=== PATIENT | female | born 1955 | race Caucasian/White ===

== ENCOUNTER 2016-08-02 18:17 | Inpatient (IN) | payer BC ==
[~2016-08-02] VITALS: Ht 167.6 cm; Wt 60.8 kg
--- NOTE | 2016-08-02 18:22 | NUR ---
BLOOD SUGAR RECHECK. 122 MG/DL
[2016-08-02 18:42] LABS: BASOPHILS % (AUTO) 0.5 % (0.0-2.0); EOSINOPHILS # (AUTO) 0.1 /CMM (0.0-0.7); EOSINOPHILS % (AUTO) 1.8 % (0.0-6.0); HEMATOCRIT 38 % (33-45); HEMOGLOBIN 12.9 g/dL (11.5-14.8); LYMPHOCYTES # (AUTO) 1.4 /CMM (0.8-4.8); LYMPHOCYTES % (AUTO) 19.4 % (20.0-44.0); MEAN CORPUSCULAR HEMOGLOBIN 32 PG (26.0-33.0); MEAN CORPUSCULAR HGB CONC 34 g/dl (31.0-36.0); MEAN CORPUSCULAR VOLUME 94 fL (82-100); MONOCYTES # (AUTO) 0.5 /CMM (0.1-1.30); MONOCYTES % (AUTO) 7.3 % (2.0-12.0); NEUTROPHILS # (AUTO) 5.2 /CMM (1.8-8.9); PLATELET COUNT (AUTO) 438 /CMM (150-450); RDW COEFFICIENT OF VARIATION 12.5 (11.5-15.0); RED BLOOD CELL COUNT(AUTO) 4.01 MIL/uL (4.0-5.2); WHITE BLOOD COUNT (AUTO) 7.2 K/uL (4.3-11.0)
[2016-08-02 18:47] LABS: CALCIUM, SERUM 9.3 mg/dL (8.5-10.1); CARBON DIOXIDE 29 mmol/L (21-32); CHLORIDE 104 mmol/L (98-107); CREATININE 0.8 mg/dL (0.6-1.3); GFR 73 mL/min (>60); GLUCOSE 106 mg/dL (74-106); POTASSIUM 3.4 mmol/L (3.5-5.1); SODIUM SERUM 141 mmol/L (136-145); UREA NITROGEN, BLOOD 19 mg/dL (7-18)
[2016-08-02 18:55] LABS: INR 0.91 (0.87-1.13); PROTHROMBIN TIME 9.5 SECS (9.5-12.7)
[2016-08-02 18:56] LABS: TROPONIN I < 0.017 ng/mL (0.00-0.056)
--- NOTE | 2016-08-02 19:10 | NUR ---
Received patient in bed aaox4, no s/s of acute distress, respiration even and unlabored. Denies any pain, discomfort at this time and says, "I feel much better." VSS. Will continue to monitor.
--- NOTE | 2016-08-02 19:14 | NUR ---
XR AT BEDSIDE.
--- NOTE | 2016-08-02 19:26 | NUR ---
DR FIELD ON THE PHONE WITH DR PRESSLEY REGARDING PATIENT ADMISSION.
[2016-08-02] MEDS ORDERED: ALBUTEROL FS 2.5 MG/3 ML VIAL.NEB CONTNEB ONE (19:30)
[2016-08-02] MEDS ORDERED: Z GUARD REMEDY 2 OZ OINT TP PRN (19:30)
[2016-08-02] MEDS ORDERED: ACETAMINOPHEN 325 MG TABLET PO PRN (19:30)
[2016-08-02] MEDS ORDERED: MORPHINE SULFATE INJ 2 MG/ML DISP.SYRIN IV PRN (19:30)
[2016-08-02] MEDS ORDERED: MAGNESIUM HYDROXIDE 30 ML UDC PO PRN (19:30)
[2016-08-02] MEDS ORDERED: ZOLPIDEM TARTRATE 5 MG TABLET PO PRN (19:30)
[2016-08-02] MEDS ORDERED: HYDROCODONE/APAP 5/325MG 1 EACH TABLET PO PRN (19:30)
[2016-08-02] MEDS ORDERED: ONDANSETRON HCL/PF 4 MG/2 ML VIAL IVP PRN (19:30)
[2016-08-02] MEDS ORDERED: MAG HYDROX/AL HYDROX/SIMETH 30 ML UDC PO PRN (19:30)
[2016-08-02] MEDS ORDERED: NITROGLYCERIN 0.4 MG/TAB BOTTLE SL PRN (19:30)
--- NOTE | 2016-08-02 19:43 | NUR ---
Dr Ny at bedside.
--- NOTE | 2016-08-02 19:47 | NUR ---
followed up Respiratory for breathing treatment orders.
--- NOTE | 2016-08-02 19:55 | NUR ---
Report given to Dayana ANGULO in 3w for admission on room 314-2.
[2016-08-02] MEDS ORDERED: ALBUTEROL FS 2.5 MG/3 ML VIAL.NEB ONE (19:56)
--- NOTE | 2016-08-02 19:59 | NUR ---
Rt at bedside for breathing treatment.
[2016-08-02 20:00] VITALS: BP_SYST 127; BP_SYST 134; BP_DIAS 80; BP_DIAS 88
[2016-08-02 20:14] VITALS: BP 127/88
--- NOTE | 2016-08-02 20:18 | NUR ---
Transported to [facility] via [facility] protocol, no incident noted. Dayana Mccray at bedside.
[2016-08-02] MEDS ORDERED: IPRATROPIUM NEB FS 0.5 MG/2.5 ML AMPUL.NEB NEB PRN (20:30)
[2016-08-02] MEDS ORDERED: ALBUTEROL FS 2.5 MG/0.5 ML VIAL.NEB NEB PRN (20:30)
--- NOTE | 2016-08-02 21:50 | NUR ---
TELE ADMITTING RN OPENING NOTES RECEIVED PATIENT FROM ER VIA [facility] AT 2014 ALERT AND ORIENTED X 4, ABLE TO MAKE NEEDS SELF KNOWN TO OTHERS. HEAD TO TOE ASSESSMENT DONE, SKIN IS INTACT, RESPIRATIONS EVEN AND UNLABORED. LUNG SOUNDS CLEAR UPON AUSCULTATION, NO S/S OF ACUTE DISTRESS, NO SOB, NO COUGH, NO CONGESTION, SKIN WARM AND DRY TO TOUCH, AFEBRILE, NEEDS ATTENDED AND ANTICIPATED, KEPT CLEAN AND DRY AND COMFORTABLE, BLADDER NOT DISTENDED, GOOD SKIN ARE PROVIDED. ABDOMEN SOFT AND NON TENDER. NO C/O OF CONSTIPATION. SAFE HAZARD FREE ENVIRONMENT PROVIDED. CALL LIGHT WITHIN EASY TO REACH, ON LOW BED AT ALL TIMES TO ENSURE SAFETY.
[2016-08-03] VITALS: BP 134/80
[2016-08-03 04:00] VITALS: BP 116/71
--- NOTE | 2016-08-03 06:50 | NUR ---
FIREMAN CLOSING NOTES PATIENT COMFORTABLY IN BED ASLEEP AND EASILY AWAKEN, ALERT AND VERBALLY RESPONSIVE X 4 DENIES PAIN OR DISTRESS, RESPONDS APPROPRIATELY TO VERBAL STIMULI, RESPIRATIONS EVEN UNLABORED BREATH SOUNDS. VS STABLE, APICAL PULSE REGULAR; IV SITE INTACT WITH NO S/S OF INFILTRATION NOTED. PATIENT IN STABLE CONDITION WITH NO SOB NO S/S OF DISTRESS NO NAUSEA AND VOMITING NO HEADACHE NO PAIN, NO COMPLAIN OF CHEST PAIN THROUGHOUT THE SHIFT SAFETY ENVIRONMENT PROVIDED. FREE OF CLUTTERS, NEEDS ATTENDED AND ANTICIPATED, NURSING CARE RENDERED, KEPT CLEAN AND DRY AND COMFORTABLE. CALL LIGHT IN REACH, BED LOWERED AND LOCKED, SR X2 FOR SAFETY AND WILL ENDORSE CONTINUE PLAN OF CARE TO THE NEXT SHIFT
[2016-08-03 07:07] LABS: ALBUMIN 3.4 g/dL (3.4-5.0); BASOPHILS % (AUTO) 0.2 % (0.0-2.0); BILIRUBIN,TOTAL 0.3 mg/dL (0.2-1.0); CALCIUM, SERUM 8.4 mg/dL (8.5-10.1); CREATININE 0.8 mg/dL (0.6-1.3); EOSINOPHILS # (AUTO) 0.2 /CMM (0.0-0.7); EOSINOPHILS % (AUTO) 2.4 % (0.0-6.0); HEMATOCRIT 35 % (33-45); LYMPHOCYTES # (AUTO) 1.3 /CMM (0.8-4.8); LYMPHOCYTES % (AUTO) 19.9 % (20.0-44.0); MAGNESIUM 1.8 mg/dL (1.8-2.4); MEAN CORPUSCULAR HEMOGLOBIN 32 PG (26.0-33.0); MEAN CORPUSCULAR HGB CONC 34 g/dl (31.0-36.0); MEAN CORPUSCULAR VOLUME 95 fL (82-100); MONOCYTES # (AUTO) 0.5 /CMM (0.1-1.30); MONOCYTES % (AUTO) 7.6 % (2.0-12.0); NEUTROPHILS # (AUTO) 4.6 /CMM (1.8-8.9); NEUTROPHILS % (AUTO) 69.9 % (43.0-81.0); PHOSPHORUS 4.2 mg/dL (2.5-4.9); PLATELET COUNT (AUTO) 362 /CMM (150-450); RDW COEFFICIENT OF VARIATION 12.9 (11.5-15.0); RED BLOOD CELL COUNT(AUTO) 3.74 MIL/uL (4.0-5.2); TOTAL PROTEIN, SERUM 6.1 g/dL (6.4-8.2); WHITE BLOOD COUNT (AUTO) 6.6 K/uL (4.3-11.0)
[2016-08-03] MEDS ORDERED: PANTOPRAZOLE 40 MG TABLET.DR PO SCH (07:30)
--- NOTE | 2016-08-03 07:30 | NUR ---
COMPUTER COMPOSITOR NOTES RECEIVED PATIENT AWAKE IN BED, AOX4, ON TELE MONITORING SR 72. BREATHING EVEN AND UNLABORED. DENIES ANY PAIN OR DISCOMFORT AT THIS TIME. CALL LIGHT WITHIN REACH, BED IN LOW POSITION FOR SAFETY MEASURES. WILL CONTINUE TO MONITOR.
[2016-08-03 08:00] VITALS: BP 107/56
[2016-08-03 08:08] VITALS: BP 107/56
--- NOTE | 2016-08-03 08:30 | NUR ---
FACILITIES PAINTER NOTES S/B DR. EMERSON WITH NEW ORDERS MADE AND CARRIED OUT.
[2016-08-03] MEDS ORDERED: PROG200C3 PO (08:57)
[2016-08-03] MEDS ORDERED: FLUO-120 PO (08:57)
[2016-08-03] MEDS ORDERED: CARVEDILOL 3.125 MG TABLET PO SCH (09:00)
[2016-08-03] MEDS ORDERED: ASPIRIN 81 MG TAB.CHEW PO SCH (09:00)
--- NOTE | 2016-08-03 09:30 | NUR ---
[employer] STUDIES PROFESSOR NOTES S/B DR. SORENSEN WITH NEW ORDERS MADE. PATIENT FOR DC HOME TODAY.
[2016-08-03 09:48] VITALS: BP 114/74
--- NOTE | 2016-08-03 10:00 | NUR ---
DIRECTOR REPORT NOTES PT AMBULATED AND DENIES ANY CHEST PAIN AT THIS TIME
--- NOTE | 2016-08-03 11:00 | NUR ---
BOX GLUER NOTES ECHO DONE AT BEDSIDE.
--- NOTE | 2016-08-03 12:33 | NUR ---
MS RN NOTES ALL DC INSTRUCTIONS, PRESCRIPTIONS AND ALL BELONGINGS GIVEN TO THE PATIENT AND VERBALIZED UNDERSTANDING. PATIENT ACCOMPANIED BY BEAR SAEZ TO THE LOBBY. PATIENT WENT HOME IN STABLE CONDITION.
== END 2016-08-03 12:30 | disposition home or self-care (01) | DRG 206 ==
LOC: ER 18:19 → TELE 20:05
PROVIDERS: ADMIT Family Medicine; ATTEND Family Medicine
DX: M94.0 Chondrocostal junction syndrome [Tietze] (principal); F12.10 Cannabis abuse, uncomplicated; F17.210 Nicotine dependence, cigarettes, uncomplicated; J45.909 Unspecified asthma, uncomplicated
CPT/HCPCS: 36415; 71010-TC; 80048-TC; 80053-TC; 80061-TC; 82962-TC; 83735-TC; 84100-TC; 84484-TC; 85025-TC; 85730-TC; 87081-TC; 93307-TC; A4606; Z7610